=== PATIENT | female | born 1930 | race Two or more races ===

== ENCOUNTER 2016-11-10 20:01 | Inpatient (IN) | payer MEDICARE, OTHER ==
[~2016-11-10] VITALS: Ht 152.4 cm; Wt 69.9 kg
--- NOTE | 2016-11-10 20:05 | NUR ---
86 YO FEMALE BB RA FROM HOME. PER FAMILY PT ACCIDENTALLY TOOK HER HUSBANDS MEDICATION IN THE AFTERNOON, THEN ABOUT 1900 HAD A SYNCOPE EPISODE. PER FAMILY PT WAS COOKING, WHEN SHE HAD THE EPISODE, FELL BACKWARDS AND HIT HER HEAD. NO BLOOD NOTED ON BACK OF HEAD. SKIN WARM AND DRY, RR EVEN AND UNLABORED. PT IS ALERT TO SELF, PER FAMILY PT IS NORMALLY A/O X 4, AMBULATORY. PT GOWNED, PLACE DON CARD SETTER. WIULL CONTINUE TO MONITOR
--- NOTE | 2016-11-10 20:31 | NUR ---
POLLS OR SURVEYS INTERVIEWER AT BED SIDE FOR BLOOD DRAW
[2016-11-10 20:45] LABS: BASOPHILS % (AUTO) 0.2 % (0.0-2.0); EOSINOPHILS # (AUTO) 0.1 /CMM (0.0-0.7); EOSINOPHILS % (AUTO) 0.9 % (0.0-6.0); HEMATOCRIT 32 % (33-45); HEMOGLOBIN 11.2 g/dL (11.5-14.8); LYMPHOCYTES # (AUTO) 1.7 /CMM (0.8-4.8); LYMPHOCYTES % (AUTO) 19.8 % (20.0-44.0); MEAN CORPUSCULAR HEMOGLOBIN 31 PG (26.0-33.0); MEAN CORPUSCULAR HGB CONC 35 g/dl (31.0-36.0); MEAN CORPUSCULAR VOLUME 89 fL (82-100); MONOCYTES # (AUTO) 0.7 /CMM (0.1-1.30); MONOCYTES % (AUTO) 7.8 % (2.0-12.0); NEUTROPHILS # (AUTO) 6.2 /CMM (1.8-8.9); NEUTROPHILS % (AUTO) 71.3 % (43.0-81.0); PLATELET COUNT (AUTO) 187 /CMM (150-450); RDW COEFFICIENT OF VARIATION 12.6 (11.5-15.0); RED BLOOD CELL COUNT(AUTO) 3.57 MIL/uL (4.0-5.2); WHITE BLOOD COUNT (AUTO) 8.7 K/uL (4.3-11.0)
--- NOTE | 2016-11-10 20:48 | NUR ---
PT TRANSPORTED TO CT VIA GURNEY BY RADIOLOGY TEAM
[2016-11-10 20:58] LABS: INR 0.95 (0.87-1.13); PROTHROMBIN TIME 9.9 SECS (9.5-12.7)
[2016-11-10 20:59] LABS: CALCIUM, SERUM 8.8 mg/dL (8.5-10.1); CARBON DIOXIDE 25 mmol/L (21-32); CHLORIDE 100 mmol/L (98-107); CREATININE 1.3 mg/dL (0.6-1.3); GLUCOSE 136 mg/dL (74-106); SODIUM SERUM 136 mmol/L (136-145); UREA NITROGEN, BLOOD 20 mg/dL (7-18)
--- NOTE | 2016-11-10 21:02 | NUR ---
[facility] CATH IN AND OUT DONE, URINE SAMPLE OBTAINED AND SENT TO LAB
[2016-11-10 21:03] LABS: TROPONIN I < 0.017 ng/mL (0.00-0.056)
[2016-11-10 21:05] LABS: ALANINE AMINOTRANSFERASE 16 U/L (12-78); ALBUMIN 3.4 g/dL (3.4-5.0); ALCOHOL, BLOOD < 3 mg/dL (0-0); ALKALINE PHOSPHATASE 87 U/L (46-116); ASPARTATE AMINOTRANSFERASE 13 U/L (15-37); BILIRUBIN,DIRECT 0.1 mg/dL (0.0-0.2); BILIRUBIN,TOTAL 0.2 mg/dL (0.2-1.0); TOTAL PROTEIN, SERUM 6.6 g/dL (6.4-8.2)
[2016-11-10 21:07] LABS: APPEARANCE,URINE Clear (CLEAR); BILIRUBIN,URINE Negative (NEGATIVE); BLOOD, URINE Negative Ery/uL (NEGATIVE); COLOR,URINE Yellow (YELLOW); KETONES,URINE 15 (NEGATIVE); LEUKOCYTE ESTERASE ,URINE Negative (NEGATIVE); NITRITE, URINE Negative (NEGATIVE); PH,URINE 6.5 (5.0-8.0); PROTEIN,URINE 30 mg/dl (NEGATIVE); UGLUCOSE Negative (NEGATIVE); UROBILINOGEN,URINE 0.2 EU/dL (0.2)
[2016-11-10 21:07] LABS: ACETAMINOPHEN 0 ug/ml (10-30); SALICYLATE 1.3 mg/dL (2.8-20.0)
[2016-11-10 21:13] LABS: THYROID STIMULATING HORMONE 6.568 uIU/mL (0.358-3.74)
[2016-11-10] MEDS ORDERED: LOSA1TAB36 PO (21:25)
[2016-11-10] MEDS ORDERED: POTA-10 PO (21:25)
[2016-11-10] MEDS ORDERED: CHOL100040 PO (21:25)
[2016-11-10] MEDS ORDERED: SIMV20TA6 PO (21:25)
[2016-11-10] MEDS ORDERED: AMLO5TAB2 PO (21:25)
[2016-11-10] MEDS ORDERED: CALC-838 PO (21:25)
[2016-11-10] MEDS ORDERED: ANAS1TAB8 PO (21:25)
[2016-11-10] MEDS ORDERED: POTASSIUM CL. PREMIX PERIPHER. 50 ML ONE (21:39)
[2016-11-10] MEDS ORDERED: IV SET PRIMARY PUMP SET 1 EA INFUS.SET MC ONE ×2 (21:39→22:33)
--- NOTE | 2016-11-10 21:39 | NUR ---
PAGED OPERATIONS COORDINATOR PANEL DR SOUSA.
[2016-11-10] MEDS: POTASSIUM CL. PREMIX PERIPHER. 50 ML IV SCH ×2 (21:47→22:56)
[2016-11-10] MEDS ORDERED: IV NS 0.9% 1,000 ML IV PRN (21:55)
[2016-11-10] MEDS ORDERED: ACETAMINOPHEN 325 MG TABLET PO PRN (22:00)
[2016-11-10] MEDS ORDERED: MAGNESIUM HYDROXIDE 30 ML UDC PO PRN (22:00)
[2016-11-10] MEDS ORDERED: HYDROCODONE/APAP 5/325MG 1 EACH TABLET PO PRN (22:00)
[2016-11-10] MEDS ORDERED: MAG HYDROX/AL HYDROX/SIMETH 30 ML UDC PO PRN (22:00)
[2016-11-10] MEDS ORDERED: ONDANSETRON HCL/PF 4 MG/2 ML VIAL IVP PRN (22:00)
[2016-11-10] MEDS ORDERED: Z GUARD REMEDY 2 OZ OINT TP PRN (22:00)
[2016-11-10] MEDS ORDERED: ENOXAPARIN SODIUM 30 MG/0.3 ML DISP.SYRIN SQ SCH (22:00)
[2016-11-10] MEDS ORDERED: ZOLPIDEM TARTRATE 5 MG TABLET PO PRN (22:00)
[2016-11-10 22:10] VITALS: BP 112/60
--- NOTE | 2016-11-10 22:10 | NUR ---
TRANSPORTED PT TO TELE BED WITHOUT INCIDENT
--- NOTE | 2016-11-10 22:30 | NUR ---
INSIDE SALES MANAGER NOTE: RECEIVED PATIENT FROM ER, NO ACUTE DISTRESS NOTED. BREATHING EVEN AND UNLABORED, NO SOB NOTED. FAMILY AT BEDSIDE. PATIENT MORE ALERT COMPARED TO ER, PATIENT KNOWS NAME, BIRTHDAY AND FAMILY MEMBERS. TELE READING SR 80. HL TO LAC IN PLACE. ORIENTED PATIENT TO ROOM AND USE OF CALL LIGHT. BED LOCKED AND IN LOWEST POSITION, CALL LIGHT IN REACH. WILL CONTINUE TO MONITOR.
[2016-11-10] MEDS ORDERED: POTASSIUM CL. PREMIX PERIPHER. 150 ML ONE (22:31)
[2016-11-10] MEDS ORDERED: ENOXAPARIN SODIUM 30 MG/0.3 ML DISP.SYRIN ONE (22:31)
[2016-11-10] MEDS ORDERED: IV NS 0.9% 1,000 ML ONE (22:33)
[2016-11-10] MEDS ORDERED: IV SET PRIMARY 1 EA INFUS.SET MC ONE (23:11)
[2016-11-11] MEDS: POTASSIUM CL. PREMIX PERIPHER. 50 ML IV SCH ×2 (00:09→01:33)
[2016-11-11 02:00] VITALS: BP 124/53
[2016-11-11 04:00] VITALS: BP 118/58
--- NOTE | 2016-11-11 06:10 | NUR ---
COW WASHER NOTE: PATIENT RESTING IN BED, NO ACUTE DISTRESS NOTED. BREATHING EVEN AND UNLABORED, NO SOB NOTED. FAMILY AT BEDSIDE. TELE READING SR 75. IV TO LAC IN PLACE, INFUSING NS AT 75 ML/HR. BED LOCKED AND IN LOWEST POSITION, CALL LIGHT IN REACH. WILL ENDORSE TO DAY NURSE TO CONTINUE WITH PLAN OF CARE.
[2016-11-11 07:23] LABS: BASOPHILS % (AUTO) 0.1 % (0.0-2.0); EOSINOPHILS % (AUTO) 0.8 % (0.0-6.0); HEMATOCRIT 30 % (33-45); HEMOGLOBIN 10.1 g/dL (11.5-14.8); LYMPHOCYTES # (AUTO) 1.4 /CMM (0.8-4.8); LYMPHOCYTES % (AUTO) 21.9 % (20.0-44.0); MEAN CORPUSCULAR HEMOGLOBIN 30 PG (26.0-33.0); MEAN CORPUSCULAR HGB CONC 33 g/dl (31.0-36.0); MEAN CORPUSCULAR VOLUME 91 fL (82-100); MONOCYTES # (AUTO) 0.5 /CMM (0.1-1.30); MONOCYTES % (AUTO) 8.3 % (2.0-12.0); NEUTROPHILS # (AUTO) 4.3 /CMM (1.8-8.9); NEUTROPHILS % (AUTO) 68.9 % (43.0-81.0); PLATELET COUNT (AUTO) 180 /CMM (150-450); RDW COEFFICIENT OF VARIATION 13.9 (11.5-15.0); RED BLOOD CELL COUNT(AUTO) 3.34 MIL/uL (4.0-5.2); WHITE BLOOD COUNT (AUTO) 6.3 K/uL (4.3-11.0)
[2016-11-11] MEDS ORDERED: PANTOPRAZOLE 40 MG TABLET.DR PO SCH (07:30)
--- NOTE | 2016-11-11 07:30 | NUR ---
INITIAL NOTES PATIENT IN BED, A+OX3, IVORIAN SPEAKING, WITH WINDSCREEN FITTER AT BED SIDE. DENIES PAIN. BREATHING WNL. TELE MONITOR READING SR 96. PER DR. MCKEON AT BED SIDE, OBTAIN ORTHO BP- NOTED LAYING 119/41 HR 96, SITTING 108/52, HR 104. STANDING 97/45, HR 112. DR. MCKEON GAVE VERBAL ORDER TO INCREASE IV FLUIDS TO 125 ML/HR. L WRIST IV PATENT& CLEAN. DISCUSSED PLAN OF CARE. CALL LIGHT IN REACH. FAMILY AT BED SIDE
[2016-11-11 08:00] VITALS: BP 119/41
[2016-11-11 08:14] LABS: IRON, SERUM 37 ug/dl (50-175); TOTAL IRON BINDING CAPACITY 302 ug/dl (250-450)
[2016-11-11 08:34] LABS: TROPONIN I < 0.017 ng/mL (0.00-0.056)
[2016-11-11] MEDS ORDERED: IV NS 0.9% 1,000 ML IV PRN (08:38)
[2016-11-11 08:50] VITALS: BP 119/41
[2016-11-11 08:51] LABS: CHOLESTEROL 153 mg/dL (<200); FERRITIN 22 ng/mL (8-388); HDL CHOLESTEROL 69 mg/dL (40-60); LDL 71 mg/dL (0-99); THYROID STIMULATING HORMONE 1.663 uIU/mL (0.358-3.74); TRIGLYCERIDES 60 mg/dL (30-150)
[2016-11-11] MEDS ORDERED: CALCIUM CARB 600MG /VIT D 1 EACH TABLET PO SCH (09:00)
[2016-11-11] MEDS ORDERED: POTASSIUM CHLORIDE 10 MEQ TABLET.SA PO SCH (09:00)
[2016-11-11] MEDS ORDERED: AMLODIPINE BESYLATE 5 MG TABLET PO SCH (09:00)
[2016-11-11] MEDS ORDERED: ANASTROZOLE 1 MG TABLET PO SCH (09:00)
[2016-11-11] MEDS ORDERED: CHOLECALCIFEROL 1,000 UNIT TABLET (VIT D3) PO SCH (09:00)
[2016-11-11 09:14] LABS: CALCIUM, SERUM 8.8 mg/dL (8.5-10.1); CREATININE 0.9 mg/dL (0.6-1.3); MAGNESIUM 1.6 mg/dL (1.8-2.4); POTASSIUM 3.9 mmol/L (3.5-5.1)
[2016-11-11 12:00] VITALS: BP 134/94
[2016-11-11] MEDS ORDERED: FERR-58 PO (13:38)
[2016-11-11] MEDS ORDERED: MAGNESIUM OXIDE 400 MG TABLET PO ONE (14:00)
--- NOTE | 2016-11-11 14:59 | NUR ---
DISCHARGE NOTE ORDER FOR D/C BY JEANETTE. PATIENT STABLE TO GO. AMBULATING WITH SON'S ASSISTANCE WITH STEADY GAIT. NO DIZZINESS. NO SOB. TELE MONITOR REMOVED GIVEN TO TECH. ALL HOSPITAL SUMMARY AND EDUCATION PROVIDED. PATIENT VACCINATED ALREADY- NOT ADMINISTERED. IV REMOVED MINIMAL BLEEDING. ALL SKIN INTACT, NO PHOTOS. BELONGINGS CONFIRMED BY SON, ALL WITH PATIENT. SON, OLIVIA, SIGNED BELONGINGS LIST AND D/C PAPERWORK. SON WILL BE ACCOMPANYING PT HOME IN PRIVATE CAR. NEW PRESCRIPTION FOR IRON GIVEN TO SON AND HE VERBALIZED UNDERSTANDING.
[2016-11-11] MEDS ORDERED: SIMVASTATIN 20 MG TABLET PO SCH (18:00)
== END 2016-11-11 15:30 | disposition home or self-care (01) | DRG 917 ==
LOC: ER 20:04 → TELE 22:08
PROVIDERS: ADMIT Internal Medicine; ATTEND Internal Medicine
DX: T38.3X1A Poisoning by insulin and oral hypoglycemic [antidiabetic] drugs, accidental (unintentional), initial encounter (principal); G92 Toxic encephalopathy; E87.6 Hypokalemia; T40.4X1A Poisoning by other synthetic narcotics, accidental (unintentional), initial encounter; T42.6X1A Poisoning by other antiepileptic and sedative-hypnotic drugs, accidental (unintentional), initial encounter; T44.6X1A Poisoning by alpha-adrenoreceptor antagonists, accidental (unintentional), initial encounter; T45.1X1A Poisoning by antineoplastic and immunosuppressive drugs, accidental (unintentional), initial encounter; Y92.009 Unspecified place in unspecified non-institutional (private) residence as the place of occurrence of the external cause; Z85.3 Personal history of malignant neoplasm of breast; Z90.10 Acquired absence of unspecified breast and nipple; I10 Essential (primary) hypertension; F03.90 Unspecified dementia, unspecified severity, without behavioral disturbance, psychotic disturbance, mood disturbance, and anxiety; E78.5 Hyperlipidemia, unspecified; E04.9 Nontoxic goiter, unspecified; I95.1 Orthostatic hypotension; Z79.899 Other long term (current) drug therapy; D50.9 Iron deficiency anemia, unspecified
CPT/HCPCS: 36415; 70450-TC; 71010-TC; 72125-TC; 80048-TC; 80061-TC; 80076-TC; 81000-TC; 82306; 82728-TC; 82962-TC; 83540-TC; 83735-TC; 84100-TC; 84439-TC; 84443-TC; 84484-TC; 85025-TC; 85730-TC; 87086-TC; 93307-TC; 97001-TC; A4606; G0480; G6039-TC; J1650; J3480; J7030; Z7610